=== PATIENT | female | born 1985 | race African-American/Black ===

== ENCOUNTER 2021-02-02 12:20 | Inpatient (IN) ==
[2021-02-02] MEDS ORDERED: BUTORPHANOL 2 MG/ML VIAL IV PRN (13:16)
[2021-02-02] MEDS ORDERED: ONDANSETRON 4 MG/2 ML VIAL IV PRN (13:16)
[2021-02-02] MEDS ORDERED: MEPERIDINE 50 MG/1 ML VIAL IV PRN (13:16)
[2021-02-02] MEDS ORDERED: OXYTOCIN/LR 20 UNIT/1,000 ML BAG IV SCH (13:30)
[2021-02-02] MEDS ORDERED: LACTATED RINGERS 1,000 ML IV SCH (13:30)
[2021-02-02 13:32] LABS: Basophils % 0.2 % (0.0-0.8); Eosinophils # 0.3 10*3/uL (0.0-0.87); Eosinophils % 5.2 % (0.00-10.9); Hematocrit 34.4 VOL% (35.7-47.0); Hemoglobin 11.1 GM/DL (12.0-16.0); Immature Granulocytes % 0.7 %; Immature Granulocytes Absolute 0.04 #; Lymphocytes # 1.3 10*3/uL (1.4-4.0); Lymphocytes % 24.1 % (21.3-54.2); Mean Corpuscular HGB Conc 32.3 GM/DL (32-36); Mean Corpuscular Volume 95.3 FL (87-102); Mean Platelet Volume 10.5 FL (9.6-12.0); Monocytes % 7.4 % (1.7-12.7); Neutrophils % 62.4 % (38.7-73.9); Platelet Count 200 T/CUMM (130-400); Red Blood Count 3.61 MC/CUMM (3.8-5.5); Red Cell Distribution Width 12.5 % (9.3-17.3); White Blood Count 5.4 T/CUMM (4-12)
[2021-02-02 13:52] LABS: Albumin 2.6 G/DL (3.4-5.0); Bilirubin,Total 0.7 MG/DL (0.20-1.00); Calcium 8.7 MG/DL (8.5-10.1); Osmolality,Calculated 268.8 MOS/KG (273-304); Potassium 3.1 MMOL/L (3.5-5.1)
[2021-02-02] MEDS ORDERED: POTASSIUM CHLORIDE 20 MEQ TABLET PO PRN (14:35)
[2021-02-02] MEDS ORDERED: TRANEXAMIC ACID 1,000 MG/10 ML VIAL ONE (16:07)
[2021-02-02] MEDS ORDERED: OXYTOCIN/LR 20 UNIT/1,000 ML BAG IV ONE (16:07)
[2021-02-02] MEDS ORDERED: miSOPROStoL 200 MCG TABLET ONE (16:07)
[2021-02-02] MEDS ORDERED: METHYLERGONOVINE 0.2 MG/1 ML AMP ONE (16:08)
[2021-02-02] MEDS ORDERED: SODIUM CHLORIDE 0.9% 0 ML IV ONE (16:08)
[2021-02-02] MEDS ORDERED: CARBOPROST TROMETHAMINE 250 MCG/ML AMP IM ONE (16:08)
[2021-02-02 16:50] LABS: Cord Arterial Blood HCO3 19.8 MMOL/L
[2021-02-02 16:53] LABS: Cord Venous Blood HCO3 21.7 MMOL/L; Cord Venous Blood PCO2 38.1 MMHG; Cord Venous Blood PO2 19.4 MMHG
[2021-02-02] MEDS ORDERED: IBUPROFEN 800 MG TABLET PO ONE (17:43)
[2021-02-03] MEDS ORDERED: HYDROCORTISONE 2.5% RECTAL CREAM 30 GM TUBE TOP PRN (00:19)
[2021-02-03] MEDS ORDERED: BISACODYL 10 MG SUPP RECTAL PRN (00:19)
[2021-02-03] MEDS ORDERED: OXYTOCIN/LR 20 UNIT/1,000 ML BAG IV ONE (00:19)
[2021-02-03] MEDS ORDERED: MEASLES/MUMPS/RUBELLA VACCINE 0.5 ML VIAL SUBCUT ONE (00:19)
[2021-02-03] MEDS ORDERED: IBUPROFEN 800 MG TABLET PO PRN (00:19)
[2021-02-03] MEDS ORDERED: ACETAMINOPHEN 325 MG TABLET PO PRN (00:19)
[2021-02-03] MEDS ORDERED: oxyCODONE/ACETAMINOPHEN 5-325 MG TABLET PO PRN ×2 (00:19)
[2021-02-03] MEDS ORDERED: RHO(D) IMMUNE GLOBULIN 300 MCG SYRINGE IM ONE (00:19)
[2021-02-03] MEDS ORDERED: DIPH/TET/ACEL PERT BOOSTER VACCINE 0.5 ML VIAL IM ONE (00:19)
[2021-02-03] MEDS ORDERED: LANOLIN 50% CREAM 0.3 OZ TUBE TOP PRN (00:19)
[2021-02-03] MEDS ORDERED: BENZOCAINE 20%/MENTHOL 0.5% SPRAY 56 GM CAN TOP PRN (00:19)
[2021-02-03] MEDS ORDERED: WITCH HAZEL PADS 100/JAR TOP PRN (00:19)
[2021-02-03] MEDS: DOCUSATE SODIUM 100 MG CAPSULE PO SCH ×3 (00:58→19:57)
[2021-02-03] MEDS: POTASSIUM CHLORIDE 20 MEQ TABLET PO PRN ×4 (00:58→19:57)
[2021-02-03 05:59] LABS: Basophils % 0.4 % (0.0-0.8); Eosinophils # 0.3 10*3/uL (0.0-0.87); Eosinophils % 3.9 % (0.00-10.9); Hematocrit 27.4 VOL% (35.7-47.0); Hemoglobin 9.3 GM/DL (12.0-16.0); Immature Granulocytes % 0.7 %; Immature Granulocytes Absolute 0.05 #; Lymphocytes # 1.5 10*3/uL (1.4-4.0); Lymphocytes % 20.6 % (21.3-54.2); Mean Corpuscular HGB Conc 33.9 GM/DL (32-36); Mean Corpuscular Volume 95.1 FL (87-102); Mean Platelet Volume 11.3 FL (9.6-12.0); Monocytes % 8.3 % (1.7-12.7); Neutrophils % 66.1 % (38.7-73.9); Platelet Count 169 T/CUMM (130-400); Red Blood Count 2.88 MC/CUMM (3.8-5.5); Red Cell Distribution Width 12.5 % (9.3-17.3); White Blood Count 7.5 T/CUMM (4-12)
[2021-02-03] MEDS: FERROUS SULFATE 325 MG TABLET PO SCH ×2 (08:43→19:57)
[2021-02-04] MEDS: DOCUSATE SODIUM 100 MG CAPSULE PO SCH ×2 (00:48→09:46)
[2021-02-04] MEDS: FERROUS SULFATE 325 MG TABLET PO SCH ×2 (00:49→09:46)
[2021-02-04 09:05] VITALS: BP 158/85
== END 2021-02-04 12:07 | disposition home or self-care (01) | DRG 807 ==
LOC: N.LD 12:20 → N.OB 23:55
PROVIDERS: ADMIT Obstetrics & Gynecology; ATTEND Obstetrics & Gynecology